=== PATIENT | female | born 1995 | race Caucasian/White ===

== ENCOUNTER 2016-06-30 19:39 | Emergency (ER) | payer OTHER ==
[2016-06-30 21:27] VITALS: BP 107/79
--- NOTE | 2016-07-01 00:14 | UC ---
Fede Bingham Michael, scribed for Henna Parekh MD on 06/30/16 at 2150 . Headache HPI - HPI Summary HPI Summary: 20 y/o female comes to [facility] presenting with intermittent episodes of a MORENO for 4 years that worsened one day ago. The pt reports that the MORENO is in the frontal lobe. She also c/o bilateral ear pain described as pulsing, which is aggravated with head movement. When the ear pain worsens it aggravates dizziness. The pt denies a rash and urinary symptoms. Her LNMP was 2 weeks ago. - History Of Current Complaint Chief Complaint: UCHeadache Stated Complaint: HEADACHE Hx Obtained From: Patient, Medical Records Hx Last Menstrual Period: 06/14 Onset/Duration: Sudden Onset, Lasting Days, Still Present Onset Of Symptoms: Still Present Initially Headache Was: Moderate Currently Pain Is: Moderate Pain Intensity: 5 Pain Scale Used: 0-10 Numeric Timing: Intermittent, Lasting: Character: Pressure Location of Headache: Frontal Aggravating Factor: Other - head movement Allevating Factors: Nothing - Allergies/Home Medications Allergies/Adverse Reactions: Allergies Allergy/AdvReac Type Severity Reaction Status Date / Time No Known Allergies Allergy Verified 06/30/16 21:09 Home Medications: Home Medications Fluoxetine HCl [Prozac] 20 mg PO MDD 60 06/30/16 [History] Fluoxetine HCl [Prozac] 40 mg PO 06/30/16 [History] LoraTADine TAB(NF) [Claritin 10 MG TAB(NF)] 10 mg PO DAILY 06/30/16 [History Confirmed 06/30/16] Tazarotene [Tazorac] 0.05 % EX 06/30/16 [History] PMH/Surg Hx/FS Hx/Imm Hx Endocrine History Of: Denies: Diabetes, Thyroid Disease Cardiovascular History Of: Denies: Cardiac Disorders, Hypertension Respiratory History Of: Denies: COPD, Asthma GI/ History Of: Denies: Ulcer - Surgical History Surgical History: None Surgery Procedure, Year, and Place: denies - Family History Known Family History: Negative: Blood Disorder - Social History Occupation: Student Lives: With Family Alcohol Use: None Substance Use Type: None Smoking Status (MU): Never Smoked Tobacco - Immunization History Most Recent Influenza Vaccination: denies Review of Systems Constitutional: Negative Skin: Negative Eyes: Negative ENT: Ear Ache Respiratory: Negative Cardiovascular: Negative Gastrointestinal: Negative Genitourinary: Negative Motor: Negative Neurovascular: Negative Musculoskeletal: Negative Neurological: Headache Psychological: Negative All Other Systems Reviewed And Are Negative: Yes Physical Exam Triage Information Reviewed: Yes Appearance: Well-Nourished Vital Signs: Initial Vital Signs Temp 99.7 F 06/30/16 21:02 Pulse 87 06/30/16 21:02 Resp 16 06/30/16 21:02 BP 114/73 06/30/16 21:02 Pulse Ox 100 06/30/16 21:02 Vital Signs Reviewed: Yes Eye Exam: Normal ENT: Positive: TM dull - rios Neck exam: Normal Neck: Positive: Supple, Nontender, No Lymphadenopathy Respiratory Exam: Normal - no dyspnea, no tachypnea, normal respiratory rate Respiratory: Positive: Chest non-tender, Lungs clear, Normal breath sounds, No respiratory distress, No accessory muscle use Cardiovascular Exam: Normal - Heart rate regular, good general skin color, good capillary refill Cardiovascular: Positive: RRR, No Murmur, Pulses Normal, Brisk Capillary Refill Abdominal Exam: Normal Abdomen Description: Positive: Nontender, No Organomegaly Bowel Sounds: Positive: Present Musculoskeletal Exam: Normal Musculoskeletal: Positive: Strength Intact Neurological Exam: Normal - nonfocal, grossly intact subj c/o dizzy Psychological Exam: Normal - conversing easily and appropriately a little anxious, approrpiately so. Upcoming final exams on the horizen, in addition to concern re current sx. Skin Exam: Normal - no visible or reported rash Headache Course/Dx - Course Course Of Treatment: Etiology for sx unclear, likely multifactoral. + serous otitis, may be contributing factor, along with dizziness. However, h/a's etc need further eval / management. D/w pt. F/u [facility] - call Sunday for appt early this week. F/u pcp in hometown upon return home in approx 2 weeks. To ED for worse or new problems in the meantime. Rx - hydroxyxzine (patient decline hydroxyxzine while at Urgent Care.) Advised not to mix w other antihistamines. Blood tests. cbc, bmp, lyme serology. Questions answered to the best of my ability. - Differential Dx/Diagnosis Provider Diagnoses: dizzy / moreno. serous otitis Discharge - Discharge Plan Condition: Stable Disposition: HOME Prescriptions: hydrOXYzine HCL TAB* [Atarax 25 MG TAB*] 25 mg PO TID PRN #[id number] tab MDD 6 PRN Reason: Dizziness Patient Education Materials: Acute Headache (ED), Dizziness (ED), Serous Otitis Media (ED) Referrals: Count Includes [facility] [Primary Care Provider] - Additional Instructions: Please call and follow up with [facility] on Sunday07/03/16. Also, when you return home from [place] for summer please schedule an appointment with your PCP. Do not take another antihistamine (Veruserol) with hydroxyzine. Tests: CBC, BNP, Lyme Serology. Return to the ED if your symptoms worsen in the mean time. The documentation as recorded by the Fede vela Michael accurately reflects the service I personally performed and the decisions made by me, Henna Parekh MD.
[2016-07-01 14:40] LABS: Hematocrit 40 % (35-47); Hemoglobin 13.4 g/dl (12.0-16.0); Mean Corpuscular HGB Conc 33 g/dl (31-36); Mean Corpuscular Hemoglobin 29 pg (27-31); Mean Corpuscular Volume 87 fL (80-97); Mean Platelet Volume 11 um3 (7.4-10.4); Red Blood Count 4.64 10^6/ul (4.0-5.4); Red Cell Distribution Width 13 % (10.5-15); White Blood Count 6.8 10^3/ul (3.5-10.8)
[2016-07-01 14:41] LABS: Add Diff/Slide Review? Manual Diff Added; Comments Flag Yes
[2016-07-01 14:52] LABS: BUN/Creatinine Ratio 7.4 (8-20); Calcium 9.6 mg/dL (8.6-10.3); EGFR African American 98.7 (>60); EGFR Non-African American 76.7 (>60)
[2016-07-01 15:03] LABS: Add Path Review? YES; Immature Granulocytes 6 % (0-9); Metamyelocytes % 2 % (0-2); Neutrophil % 76 % (38-83); RBC Morphology Normal (Normal)
== END 2016-06-30 22:15 | disposition home or self-care (01) ==
LOC: UCEAST 19:39
DX: R51 Headache (principal); R42 Dizziness and giddiness; H65.93 Unspecified nonsuppurative otitis media, bilateral
CPT/HCPCS: 36415; 80048; 85025; 85060; 86618; 99202; G0463